=== PATIENT | male | born 1975 | race Asian ===

== ENCOUNTER 2021-12-24 18:32 | Emergency (ER) | payer OTHER ==
[~2021-12-24] VITALS: Ht 177.8 cm; Wt 72.6 kg
--- NOTE | 2021-12-24 18:40 | NUR ---
To ER bed 8, "Was eating meat it got stuck in throat-vomiting" very anxious/restless/agitated, aaox3, breathing even and non labored, connected to monitor, awaiting md [email or web address]
[2021-12-24 19:34] VITALS: BP 131/81
--- NOTE | 2021-12-24 19:34 | NUR ---
Patient discharged to home in stable condition. Written and verbal after care instructions given. Patient verbalizes understanding of instruction. PT ambulatory with a steady gait
== END 2021-12-24 19:35 | disposition home or self-care (01) ==
LOC: ER 18:38
DX: T18.128A Food in esophagus causing other injury, initial encounter (principal); X58.XXXA Exposure to other specified factors, initial encounter; Y93.89 Activity, other specified; Y92.89 Other specified places as the place of occurrence of the external cause; Y99.9 Unspecified external cause status